=== PATIENT | male | born 1935 | race Caucasian/White ===

== ENCOUNTER 2019-02-22 07:41 | Day surgery (SDC) | payer MEDICARE ==
[~2019-02-22] VITALS: Ht 175.3 cm; Wt 96.8 kg
[2019-02-22] MEDS ORDERED: LEVSOD100 PO (08:35)
[2019-02-22] MEDS ORDERED: Desyrel150 MG PO (08:36)
[2019-02-22] MEDS ORDERED: ASPI81CH PO (08:36)
[2019-02-22] MEDS ORDERED: HYDRA50 PO (08:37)
[2019-02-22] MEDS ORDERED: NITR.4SL SL (08:37)
[2019-02-22] MEDS ORDERED: ATOR40TA PO (08:37)
[2019-02-22] MEDS ORDERED: SPIR25 PO (08:38)
[2019-02-22] MEDS ORDERED: METO25ER PO (08:38)
[2019-02-22] MEDS ORDERED: FURO40 PO (08:38)
[2019-02-22] MEDS ORDERED: K-Dur20 MEQ PO (08:38)
--- NOTE | 2019-02-22 12:25 | NUR ---
PT TO RECOVERY POST PROCEDURE. PT AWAKE, ANSWERING QUESTIONS APPROPRIATELY. PT DENIES PAIN, SOB OR NAUSEA-TAKING PO. MONITOR PACED RYHTYM 60'S, B/P 191/93, AFEBRILE, SPO2 94-95% RA. L CHEST SITE WITHOUT SWELLING/HEMATOMA, TRANSPARENT DRSG IN PLACE C,D,I. PT'S AT BEDSIDE, ATTENTIVE.
--- NOTE | 2019-02-22 13:59 | NUR ---
PT AND VERBALIZED UNDERSTANDING OF WRITTEN AND VERBAL D/C INST. IV REMOVED. -BLEEDING OR SWELLING L UPPER CHEST AREA. PT TAKEN OUT OF THE HRT CENTER VIA W/C.
== END 2019-02-22 14:30 | disposition home or self-care (01) ==
LOC: MHTC 07:41 → ORSCMMR 07:42 → MHTC 08:00
DX: Z45.010 Encounter for checking and testing of cardiac pacemaker pulse generator [battery] (principal); E78.00 Pure hypercholesterolemia, unspecified; I25.10 Atherosclerotic heart disease of native coronary artery without angina pectoris; I12.9 Hypertensive chronic kidney disease with stage 1 through stage 4 chronic kidney disease, or unspecified chronic kidney disease; N18.4 Chronic kidney disease, stage 4 (severe); E03.9 Hypothyroidism, unspecified; Z87.891 Personal history of nicotine dependence; I25.118 Atherosclerotic heart disease of native coronary artery with other forms of angina pectoris; Z88.0 Allergy status to penicillin; Z88.2 Allergy status to sulfonamides; Z79.82 Long term (current) use of aspirin; Z79.899 Other long term (current) drug therapy
CPT/HCPCS: 33228; 93005; 93010; 99152; 99153; C1785; J1644; J2250; J3010; J3370; J7030; J7040

== ENCOUNTER 2019-08-29 05:56 | Day surgery (SDC) | payer MEDICARE ==
[~2019-08-29] VITALS: Ht 175.3 cm; Wt 95.0 kg
[~2019-08-29 05:56] MED LIST: ASPI81CH PO; ATOR40TA PO; DILTIAZEM 24HR180 M2 PO; Desyrel150 MG PO; FURO40 PO; HYDRA50 PO; Isosorbide Mono30 MG PO; K-Dur20 MEQ PO; LEVSOD100 PO; METO25ER PO; NIFE10 PO; NITR.4SL SL; SPIR25 PO; Ultram50 MG PO
[2019-08-29 06:35] LABS: BASOPHILS ABSOLUTE AUTO 0.07 K/mm3 (0.00-0.23); BASOPHILS PERCENT AUTO 1 % (0-2); EOSINOPHILS ABSOLUTE AUTO 0.16 K/mm3 (0.00-0.68); EOSINOPHILS PERCENT AUTO 3 % (0-6); Hematocrit 41.1 % (37.0-53.0); Hemoglobin 13.9 g/dL (13.5-17.5); IMMATURE GRAN ABSOLUTE AUTO 0.03 K/mm3 (0.00-0.10); IMMATURE GRAN PERCENT AUTO 1 % (0-1); LYMPHOCYTES ABSOLUTE AUTO 1.38 K/mm3 (0.84-5.20); LYMPHOCYTES PERCENT AUTO 23 % (21-46); MONOCYTES ABSOLUTE AUTO 0.72 K/mm3 (0.16-1.47); MONOCYTES PERCENT AUTO 12 % (4-13); Mean Corpuscular HGB 31.7 pg (26.0-34.0); Mean Corpuscular HGB Conc 33.8 g/dL (31.5-36.5); Mean Corpuscular Volume 94 fL (80-100); Mean Platelet Volume 9.1 fL (9.1-12.4); NEUTROPHILS ABSOLUTE AUTO 3.77 K/mm3 (1.96-9.15); NEUTROPHILS PERCENT AUTO 62 % (41-73); Platelet Count 236 K/mm3 (150-400); RDW Coefficient Variation 12.5 % (11.7-14.2); RDW Standard Deviation 42.9 fL (35.1-46.3); Red Blood Cell Count 4.39 M/mm3 (4.30-5.90); White Blood Cell Count 6.13 K/mm3 (4.00-11.30)
[2019-08-29 06:52] LABS: Bun/Creatinine Ratio 12.6 (12.0-20.0); Calcium, Blood 8.7 mg/dL (8.5-10.1); Creatinine, Blood 1.74 mg/dL (0.60-1.20); Potassium, Blood 3.7 mmol/L (3.5-5.5)
--- NOTE | 2019-08-29 07:39 | NUR ---
heels offloaded at this time, pt comfortable. denies pain.
--- NOTE | 2019-08-29 13:23 | NUR ---
PRESSURE DRESSING, ICE, AND WEIGHT REMOVED FROM LEFT CHEST SITE. SITE WITHOUT SWELLING, SMALL AMOUNT OOZING NOTED. SITE REMAINS UNCHANGED PT UP TO BR X 2 AND GETTING DRESSED. RECHECKED SITE PRIOR TO DISCHARGE AND REMAINS UNCHANGED. DISCHARGE GONE OVER WITH PT AND , BOTH VERBALIZE UNDERSTANDING OF INSTRUCTIONS. PT TO PRIVATE VEHICLE PER ESCORT.
== END 2019-08-29 13:45 | disposition home or self-care (01) ==
LOC: MHTC 05:56
PROVIDERS: Internal Medicine Cardiovascular Disease
DX: Z45.010 Encounter for checking and testing of cardiac pacemaker pulse generator [battery] (principal); I11.9 Hypertensive heart disease without heart failure; I43 Cardiomyopathy in diseases classified elsewhere; I49.5 Sick sinus syndrome; I25.118 Atherosclerotic heart disease of native coronary artery with other forms of angina pectoris; Z88.2 Allergy status to sulfonamides; Z88.0 Allergy status to penicillin; Z79.899 Other long term (current) drug therapy; E78.00 Pure hypercholesterolemia, unspecified; Z87.891 Personal history of nicotine dependence
CPT/HCPCS: 71046; 80048; 85025; 93005; 93010; 99152; 99153; C1769; C1898; J1644; J2250; J3010; J7030; J7040

== ENCOUNTER 2021-03-16 10:26 | Emergency (ER) | payer MEDICARE ==
[~2021-03-16] VITALS: Ht 175.3 cm; Wt 86.2 kg
== END 2021-03-16 12:53 | disposition home or self-care (01) ==
LOC: ER 10:26
DX: U07.1 COVID-19 (principal); I25.10 Atherosclerotic heart disease of native coronary artery without angina pectoris; I10 Essential (primary) hypertension; M10.9 Gout, unspecified; E03.9 Hypothyroidism, unspecified; Z88.0 Allergy status to penicillin; Z88.2 Allergy status to sulfonamides; Z79.899 Other long term (current) drug therapy; Z79.82 Long term (current) use of aspirin; Z87.891 Personal history of nicotine dependence
CPT/HCPCS: 99283-25; M0243; Q0243